=== PATIENT | male | born 1940 | race Caucasian/White ===

== ENCOUNTER 2017-07-29 22:16 | Inpatient (IN) | payer MEDICARE, OTHER ==
[~2017-07-29] VITALS: Ht 193 cm; Wt 96.3 kg
[2017-07-29] MEDS ORDERED: methylPREDNISolone SOD SUCC 125 MG/2 ML VL ONE ×2 (22:18→22:21)
[2017-07-29] MEDS: IPRATROPIUM BROM 0.5 MG/2.5ML INH SOL NEB ONE (22:28)
[2017-07-29] MEDS: ALBUTEROL SULF 2.5 MG/0.5ML(0.5%) NEB SOLN NEB ONE (22:28)
[2017-07-29] MEDS ORDERED: FAMOTIDINE (10MG/ML) 2ML VL IV ONE (22:30)
[2017-07-29] MEDS ORDERED: methylPREDNISolone SOD SUCC 125 MG/2 ML VL IV ONE (22:30)
[2017-07-29 22:58] LABS: Basophils # (auto) 0.1 uL; Basophils % (auto) 0.5 % (0.0-2.0); Eosinophils # (auto) 0.3 uL; Eosinophils % (auto) 2.1 % (0.0-7.0); Hematocrit 31.9 % (41.0-53.0); Hemoglobin 10.6 g/dL (13.5-17.5); Lymphocytes # (auto) 2.8 uL; Lymphocytes % (auto) 20.8 % (10.0-50.0); Mean Corpuscular Hemoglobin 30.6 pg (28.0-32.0); Mean Corpuscular Hgb Conc. 33.2 g/dL (32.0-36.0); Mean Corpuscular Volume 92.1 fL (80.0-100.0); Mean Platelet Volume 10.1 fL (6.9-10.8); Monocytes # (auto) 0.8 uL; Monocytes % (auto) 6.2 % (0.0-12.0); Neutrophils # (auto) 9.3 uL; Neutrophils % (auto) 70.4 % (37.0-80.0); Platelet Count (auto) 141 10^3/uL (140-450); Red Cell Distribution Width 16.2 % (11.8-14.3); White Blood Cell 13.2 10^3/uL (4.4-10.8)
[2017-07-29 23:10] LABS: INR 1.05 (0.9-1.15); Prothrombin Time 11.4 sec (9.37-12.3)
[2017-07-29 23:19] LABS: Albumin 3.4 g/dL (3.4-5.0); Alkaline Phosphatase 76 U/L (45-117); Anion Gap 8 (5-15); Aspartate Aminotransferase 31 U/L (15-37); BUN/Creatinine Ratio 25.3; Bilirubin, Total 0.3 mg/dL (0.2-1.0); Blood Urea Nitrogen 37 mg/dL (7-18); Calcium 9.2 mg/dL (8.5-10.1); Carbon Dioxide 29 mmol/L (21-32); Chloride 100 mmol/L (98-107); GFR African American 60 mL/min; GFR Non-African American 50 mL/min; Glucose 117 mg/dL (74-106); Magnesium 2.1 mg/dL (1.6-2.6); Potassium 4.4 mmol/L (3.5-5.1); Sodium 137 mmol/L (136-145)
[2017-07-29 23:31] LABS: B-Type Natriuretic Peptide 31.19 pg/mL (0-100)
[2017-07-29 23:38] LABS: Temperature: 23.1 C (20.0-25.0)
[2017-07-29] MEDS ORDERED: cefTRIAXone 1GM/50ML D5W 50 ML IV ONE (23:45)
[2017-07-29] MEDS ORDERED: VANCOMYCIN 1GM/250ML 250 ML IV ONE (23:45)
[2017-07-29] MEDS ORDERED: FLUT250M2 INH (23:46)
[2017-07-29] MEDS ORDERED: ATOR1TAB PO (23:48)
[2017-07-29] MEDS ORDERED: TAM04C PO ×2 (23:48→23:53)
[2017-07-29] MEDS ORDERED: EZET10TA2 PO (23:48)
[2017-07-29] MEDS ORDERED: CETI1TAB36 PO (23:48)
[2017-07-29] MEDS ORDERED: HYDR12.527 PO (23:51)
[2017-07-29] MEDS ORDERED: LEVO112T35 PO (23:51)
[2017-07-29] MEDS ORDERED: OME20T PO (23:51)
[2017-07-29] MEDS ORDERED: FLUT50SP (23:53)
[2017-07-30] VITALS (8 sets, daily range): BP systolic 100–171; BP diastolic 57–79
[2017-07-30] MEDS ORDERED: HYDROcodone-ACET 5/325MG TAB PO PRN (00:30)
[2017-07-30] MEDS ORDERED: ACETAMINOPHEN 500 MG TAB PO PRN (00:30)
[2017-07-30] MEDS ORDERED: TEMAZEPAM 15 MG CAP PO PRN (00:30)
[2017-07-30] MEDS ORDERED: MORPHINE SULF INJ 2 MG/ML SYRINGE 1ML IV PRN (00:30)
[2017-07-30 01:16] LABS: Urine Bilirubin Negative (Negative); Urine Blood Negative /uL (Negative); Urine Color Yellow (Yellow); Urine Glucose Normal (Normal); Urine Hyaline Cast FEW /lpf (0 - 2); Urine Ketone Negative (Negative); Urine Nitrite Negative (Negative); Urine RBC 6 /hpf (0 - 3); Urine Squamous Epithelial Cell FEW /hpf (<5); Urine Urobilinogen Normal (Negative)
[2017-07-30] MEDS ORDERED: ASPI81TA27 PO (02:14)
[2017-07-30] MEDS ORDERED: ALBU2TAB4 PO (02:14)
[2017-07-30] MEDS ORDERED: TIOTCAP IN (02:14)
[2017-07-30] MEDS ORDERED: MULT1CHW52 PO (02:14)
[2017-07-30] MEDS ORDERED: FLUT250M2 INH (02:14)
[2017-07-30] MEDS ORDERED: MULT0.07 PO (02:14)
[2017-07-30] MEDS ORDERED: MELO15TA4 PO (02:14)
[2017-07-30] MEDS ORDERED: LEV100T PO (05:20)
[2017-07-30 05:21] LABS: Basophils # (auto) 0 uL; Basophils % (auto) 0.4 % (0.0-2.0); Eosinophils # (auto) 0 uL; Eosinophils % (auto) 0.4 % (0.0-7.0); Hematocrit 29.8 % (41.0-53.0); Lymphocytes # (auto) 1.2 uL; Lymphocytes % (auto) 9.5 % (10.0-50.0); Mean Corpuscular Hemoglobin 30.8 pg (28.0-32.0); Mean Corpuscular Hgb Conc. 33.7 g/dL (32.0-36.0); Mean Corpuscular Volume 91.5 fL (80.0-100.0); Mean Platelet Volume 9.7 fL (6.9-10.8); Monocytes # (auto) 0.3 uL; Neutrophils # (auto) 11.1 uL; Neutrophils % (auto) 87.7 % (37.0-80.0); Platelet Count (auto) 119 10^3/uL (140-450); Red Cell Distribution Width 16.2 % (11.8-14.3); White Blood Cell 12.6 10^3/uL (4.4-10.8)
[2017-07-30 05:47] LABS: BUN/Creatinine Ratio 25.7; Calcium 9.2 mg/dL (8.5-10.1); Potassium 4.6 mmol/L (3.5-5.1)
[2017-07-30] MEDS ORDERED: LEVO112T4 PO (06:38)
[2017-07-30] MEDS: LEVOTHYROXINE SODIUM 112 MCG TAB PO SCH (06:42)
[2017-07-30] MEDS: ALBUTEROL SULF 2.5 MG/0.5ML(0.5%) NEB SOLN NEB SCH ×3 (06:54→19:08)
[2017-07-30] MEDS: IPRATROPIUM BROM 0.5 MG/2.5ML INH SOL NEB SCH ×3 (06:54→19:08)
[2017-07-30] MEDS ORDERED: LEVOTHYROXINE SODIUM 100 MCG TAB PO SCH (07:00)
[2017-07-30] MEDS ORDERED: HCTZ 25 MG TAB PO SCH (10:00)
[2017-07-30] MEDS ORDERED: AZITHROMYCIN 500MG/ 250ML 250 ML IV ONE (11:30)
[2017-07-30] MEDS ORDERED: FUROSEMIDE 20 MG/2 ML VIAL IV ONE (11:30)
[2017-07-30] MEDS ORDERED: cefTRIAXone 1GM/50ML D5W 50 ML IV ONE (11:30)
[2017-07-30] MEDS ORDERED: POTASSIUM CHL 20 Meq TABLET PO ONE (11:30)
[2017-07-30] MEDS: TAMSULOSIN HYDROCHLORIDE 0.4 MG CAP PO SCH (18:39)
[2017-07-30] MEDS: BUDESONIDE (INHALATION) 0.5 MG/2 ML NEB NEB SCH (19:09)
[2017-07-30] MEDS: ATORVASTATIN 20 MG TAB PO SCH (21:26)
[2017-07-31] MEDS: ALBUTEROL SULF 2.5 MG/0.5ML(0.5%) NEB SOLN NEB SCH ×4 (00:34→19:09)
[2017-07-31] MEDS: IPRATROPIUM BROM 0.5 MG/2.5ML INH SOL NEB SCH ×4 (00:34→19:09)
[2017-07-31 04:25] VITALS: BP 146/68
[2017-07-31 05:50] LABS: Basophils # (auto) 0 uL; Basophils % (auto) 0.2 % (0.0-2.0); Eosinophils # (auto) 0.1 uL; Eosinophils % (auto) 0.8 % (0.0-7.0); Hematocrit 30.3 % (41.0-53.0); Hemoglobin 10.1 g/dL (13.5-17.5); Lymphocytes # (auto) 1.2 uL; Lymphocytes % (auto) 11.8 % (10.0-50.0); Mean Corpuscular Hemoglobin 30.9 pg (28.0-32.0); Mean Corpuscular Hgb Conc. 33.3 g/dL (32.0-36.0); Mean Platelet Volume 9.8 fL (6.9-10.8); Monocytes # (auto) 0.5 uL; Monocytes % (auto) 4.3 % (0.0-12.0); Neutrophils # (auto) 8.7 uL; Neutrophils % (auto) 82.9 % (37.0-80.0); Nucleated Red Blood Cells % 0.1 %; Platelet Count (auto) 106 10^3/uL (140-450); Red Cell Distribution Width 15.8 % (11.8-14.3); White Blood Cell 10.5 10^3/uL (4.4-10.8)
[2017-07-31 06:01] LABS: BUN/Creatinine Ratio 27.6; Calcium 9.2 mg/dL (8.5-10.1); Potassium 4.2 mmol/L (3.5-5.1)
[2017-07-31] MEDS: BUDESONIDE (INHALATION) 0.5 MG/2 ML NEB NEB SCH ×2 (06:08→23:00)
[2017-07-31] MEDS: LEVOTHYROXINE SODIUM 112 MCG TAB PO SCH (06:46)
[2017-07-31 08:00] VITALS: BP 136/58
[2017-07-31] MEDS: cefTRIAXone 1GM/50ML D5W 50 ML IV SCH (08:42)
[2017-07-31 09:00] VITALS: BP 136/58
[2017-07-31] MEDS: AZITHROMYCIN 500MG/ 250ML 250 ML IV SCH (09:58)
[2017-07-31] MEDS ORDERED: ASPirin 81 mg TAB PO ONE (11:30)
[2017-07-31] MEDS ORDERED: MULTIPLE VITAMINS W/ MINERALS TAB PO ONE (11:30)
[2017-07-31] MEDS ORDERED: POTASSIUM CHL 10 Meq TABLET PO ONE (11:30)
[2017-07-31] MEDS ORDERED: FUROSEMIDE 20 MG TAB PO ONE (11:30)
[2017-07-31] MEDS ORDERED: PANTOPRAZOLE 40 MG TAB PO ONE (11:45)
[2017-07-31 13:00] VITALS: BP 148/68
[2017-07-31 16:29] VITALS: BP 152/77
[2017-07-31] MEDS ORDERED: FLUTICASONE PROP NASAL SPR 0.05 % (50MCG) 16GM EACHNOSTRI ONE (16:45)
[2017-07-31] MEDS ORDERED: methylPREDNISolone SOD SUCC 40 MG/ML VL IM ONE (16:45)
[2017-07-31] MEDS: TAMSULOSIN HYDROCHLORIDE 0.4 MG CAP PO SCH (16:52)
[2017-07-31] MEDS ORDERED: methylPREDNISolone SOD SUCC 40 MG/ML VL IV ONE (17:00)
[2017-07-31] MEDS: methylPREDNISolone SOD SUCC 40 MG/ML VL IV SCH (21:10)
[2017-07-31] MEDS: FLUTICASONE PROP NASAL SPR 0.05 % (50MCG) 16GM EACHNOSTRI SCH (21:10)
[2017-07-31] MEDS: ATORVASTATIN 20 MG TAB PO SCH (21:11)
[2017-07-31 21:46] VITALS: BP 140/75
[2017-08-01 04:40] VITALS: BP 147/77
[2017-08-01 06:17] LABS: Basophils # (auto) 0 uL; Basophils % (auto) 0.3 % (0.0-2.0); Eosinophils # (auto) 0 uL; Eosinophils % (auto) 0.1 % (0.0-7.0); Hematocrit 29.6 % (41.0-53.0); Hemoglobin 10.1 g/dL (13.5-17.5); Lymphocytes % (auto) 12.9 % (10.0-50.0); Mean Corpuscular Hemoglobin 31.4 pg (28.0-32.0); Mean Corpuscular Hgb Conc. 34.2 g/dL (32.0-36.0); Mean Corpuscular Volume 91.9 fL (80.0-100.0); Mean Platelet Volume 9.9 fL (6.9-10.8); Monocytes # (auto) 0.2 uL; Neutrophils # (auto) 6.5 uL; Neutrophils % (auto) 83.7 % (37.0-80.0); Nucleated Red Blood Cells % 0.1 %; Platelet Count (auto) 114 10^3/uL (140-450); White Blood Cell 7.8 10^3/uL (4.4-10.8)
[2017-08-01] MEDS: LEVOTHYROXINE SODIUM 112 MCG TAB PO SCH (06:21)
[2017-08-01 06:52] LABS: BUN/Creatinine Ratio 29.7; Calcium 9.7 mg/dL (8.5-10.1); Potassium 4.6 mmol/L (3.5-5.1)
[2017-08-01] MEDS: ALBUTEROL SULF 2.5 MG/0.5ML(0.5%) NEB SOLN NEB SCH ×4 (07:12→18:22)
[2017-08-01] MEDS: BUDESONIDE (INHALATION) 0.5 MG/2 ML NEB NEB SCH ×2 (07:12→18:23)
[2017-08-01] MEDS: IPRATROPIUM BROM 0.5 MG/2.5ML INH SOL NEB SCH ×4 (07:12→18:22)
[2017-08-01] MEDS: FLUTICASONE PROP NASAL SPR 0.05 % (50MCG) 16GM EACHNOSTRI SCH ×2 (08:42→22:03)
[2017-08-01] MEDS: cefTRIAXone 1GM/50ML D5W 50 ML IV SCH (08:42)
[2017-08-01 09:00] VITALS: BP 134/56
[2017-08-01] MEDS: AZITHROMYCIN 500MG/ 250ML 250 ML IV SCH (09:34)
[2017-08-01] MEDS: methylPREDNISolone SOD SUCC 40 MG/ML VL IV SCH ×2 (09:35→22:03)
[2017-08-01] MEDS: MULTIPLE VITAMINS W/ MINERALS TAB PO SCH (09:35)
[2017-08-01] MEDS: POTASSIUM CHL 10 Meq TABLET PO SCH (09:35)
[2017-08-01] MEDS: FUROSEMIDE 20 MG TAB PO SCH (09:36)
[2017-08-01] MEDS: PANTOPRAZOLE 40 MG TAB PO SCH (09:36)
[2017-08-01] MEDS: ASPirin 81 mg TAB PO SCH (09:36)
[2017-08-01 13:00] VITALS: BP 142/74
[2017-08-01 17:00] VITALS: BP 149/94
[2017-08-01] MEDS: TAMSULOSIN HYDROCHLORIDE 0.4 MG CAP PO SCH (18:08)
[2017-08-01 20:00] VITALS: BP 149/74
[2017-08-01 22:00] VITALS: BP 149/74
[2017-08-01] MEDS: ATORVASTATIN 20 MG TAB PO SCH (22:04)
[2017-08-02] MEDS: ALBUTEROL SULF 2.5 MG/0.5ML(0.5%) NEB SOLN NEB SCH ×5 (00:21→19:01)
[2017-08-02] MEDS: IPRATROPIUM BROM 0.5 MG/2.5ML INH SOL NEB SCH ×5 (00:21→19:01)
[2017-08-02 05:00] VITALS: BP 142/70
[2017-08-02 06:20] LABS: Basophils # (auto) 0 uL; Basophils % (auto) 0.1 % (0.0-2.0); Eosinophils # (auto) 0 uL; Hematocrit 29.5 % (41.0-53.0); Lymphocytes # (auto) 1.1 uL; Lymphocytes % (auto) 11.8 % (10.0-50.0); Mean Corpuscular Hemoglobin 31.4 pg (28.0-32.0); Mean Corpuscular Volume 92.5 fL (80.0-100.0); Mean Platelet Volume 9.8 fL (6.9-10.8); Monocytes # (auto) 0.6 uL; Monocytes % (auto) 7.1 % (0.0-12.0); Neutrophils # (auto) 7.3 uL; Platelet Count (auto) 111 10^3/uL (140-450); Red Cell Distribution Width 15.6 % (11.8-14.3)
[2017-08-02] MEDS: LEVOTHYROXINE SODIUM 112 MCG TAB PO SCH (06:27)
[2017-08-02 06:40] LABS: BUN/Creatinine Ratio 31.6; Potassium 4.8 mmol/L (3.5-5.1)
[2017-08-02] MEDS: BUDESONIDE (INHALATION) 0.5 MG/2 ML NEB NEB SCH ×2 (07:05→19:01)
[2017-08-02] MEDS: cefTRIAXone 1GM/50ML D5W 50 ML IV SCH (07:39)
[2017-08-02 09:00] VITALS: BP 140/69
[2017-08-02] MEDS: ASPirin 81 mg TAB PO SCH (09:47)
[2017-08-02] MEDS: methylPREDNISolone SOD SUCC 40 MG/ML VL IV SCH (09:47)
[2017-08-02] MEDS: AZITHROMYCIN 500MG/ 250ML 250 ML IV SCH (09:47)
[2017-08-02] MEDS: FUROSEMIDE 20 MG TAB PO SCH (09:48)
[2017-08-02] MEDS: MULTIPLE VITAMINS W/ MINERALS TAB PO SCH (09:48)
[2017-08-02] MEDS: PANTOPRAZOLE 40 MG TAB PO SCH (09:48)
[2017-08-02] MEDS: POTASSIUM CHL 10 Meq TABLET PO SCH (09:48)
[2017-08-02] MEDS: FLUTICASONE PROP NASAL SPR 0.05 % (50MCG) 16GM EACHNOSTRI SCH ×2 (09:49→22:19)
[2017-08-02] MEDS ORDERED: AZITHROMYCIN 250 MG TAB PO ONE (12:15)
[2017-08-02 13:00] VITALS: BP 142/72
[2017-08-02 15:44] VITALS: BP 140/69
[2017-08-02 17:00] VITALS: BP 152/82
[2017-08-02] MEDS ORDERED: diphenhdrAMINE HCL 50 MG/1 ML VL ONE (18:14)
[2017-08-02] MEDS: TAMSULOSIN HYDROCHLORIDE 0.4 MG CAP PO SCH (19:24)
[2017-08-02 21:32] VITALS: BP 145/76
[2017-08-02] MEDS: ATORVASTATIN 20 MG TAB PO SCH (22:19)
[2017-08-03 03:54] VITALS: BP 145/76
[2017-08-03 04:38] VITALS: BP 135/69
[2017-08-03] MEDS: IPRATROPIUM BROM 0.5 MG/2.5ML INH SOL NEB SCH ×2 (06:27→10:51)
[2017-08-03] MEDS: ALBUTEROL SULF 2.5 MG/0.5ML(0.5%) NEB SOLN NEB SCH ×2 (06:27→10:51)
[2017-08-03] MEDS: LEVOTHYROXINE SODIUM 112 MCG TAB PO SCH (06:36)
[2017-08-03 08:28] VITALS: BP 126/48
[2017-08-03] MEDS: MULTIPLE VITAMINS W/ MINERALS TAB PO SCH (09:48)
[2017-08-03] MEDS: PANTOPRAZOLE 40 MG TAB PO SCH (09:49)
[2017-08-03] MEDS: ASPirin 81 mg TAB PO SCH (09:49)
[2017-08-03] MEDS: cefTRIAXone 1GM/50ML D5W 50 ML IV SCH (09:49)
[2017-08-03] MEDS: POTASSIUM CHL 10 Meq TABLET PO SCH (09:49)
[2017-08-03] MEDS: FLUTICASONE PROP NASAL SPR 0.05 % (50MCG) 16GM EACHNOSTRI SCH (09:49)
[2017-08-03] MEDS: FUROSEMIDE 20 MG TAB PO SCH (09:50)
[2017-08-03] MEDS ORDERED: AZITHROMYCIN 250 MG TAB PO SCH (10:00)
[2017-08-03] MEDS ORDERED: predniSONE 20 MG TAB PO SCH (10:00)
[2017-08-03 10:15] VITALS: BP 120/56
[2017-08-03] MEDS: BUDESONIDE (INHALATION) 0.5 MG/2 ML NEB NEB SCH (10:51)
== END 2017-08-03 13:18 | disposition home or self-care (01) | DRG 871 ==
LOC: EEVIPCON 22:24 → ER 22:24 → OVERFLOW 22:25 → WEST WING 07-30 00:47
PROVIDERS: ADMIT Nurse Practitioner Family; ATTEND Internal Medicine
DX: A41.9 Sepsis, unspecified organism (principal); J96.21 Acute and chronic respiratory failure with hypoxia; N17.0 Acute kidney failure with tubular necrosis; I13.0 Hypertensive heart and chronic kidney disease with heart failure and stage 1 through stage 4 chronic kidney disease, or unspecified chronic kidney disease; J18.9 Pneumonia, unspecified organism; N18.3 Chronic kidney disease, stage 3 (moderate); I50.32 Chronic diastolic (congestive) heart failure; J44.0 Chronic obstructive pulmonary disease with (acute) lower respiratory infection; J44.1 Chronic obstructive pulmonary disease with (acute) exacerbation; E03.9 Hypothyroidism, unspecified; E78.5 Hyperlipidemia, unspecified; N40.0 Benign prostatic hyperplasia without lower urinary tract symptoms; Z87.891 Personal history of nicotine dependence
CPT/HCPCS: 36415; 71010; 80048; 80053; 80061; 81001; 83735; 83880; 84443; 84484; 85025; 85379; 85610; 85730; 87040; 93306; 94640; 94761; 96365; 96368; 96375; 97110; 97116; 97163; 97530; J0696; J3490